=== PATIENT | male | born 1955 | race Caucasian/White ===

== ENCOUNTER 2021-11-14 17:50 | Outpatient (REF) | payer BC, SELFPAY ==
[2021-11-14 15:41] LABS: Hemoglobin A1C 5.7 % (<5.7)
[2021-11-14 15:50] LABS: ALT 30 U/L (16-63); AST 16 U/L (15-37); Albumin 3.7 g/dL (3.4-5.0); Alkaline Phosphatase 66 U/L (46-116); Anion Gap 9.2 mmol/L (3-11); BUN 16 mg/dL (7-18); Bilirubin, Total 0.7 mg/dL (0.2-1.0); CO2 27.8 mmol/L (21.0-32.0); Calcium 8.9 mg/dL (8.5-10.1); Calculated LDL 179 mg/dL (<100); Chloride 104 mmol/L (98-107); Cholesterol 248 mg/dL (<200); Estimated GFR 83.52 (mL/min/1.73m2); Glucose 114 mg/dL (74-106); HDL Cholesterol 50 mg/dL (40-60); Potassium 4.5 mmol/L (3.5-5.1); Sodium 141 mmol/L (136-145); Triglyceride 95 mg/dL (<150)
[2021-11-15 08:58] LABS: Hepatitis C Ab w Rflx HCV PCR Negative (Negative)
[2021-11-15 09:21] LABS: HIV-1/2 Ag & Ab Screen Negative (Negative)
== END 2021-11-14 17:51 | disposition home or self-care (01) ==
LOC: NCHCN 17:50
PROVIDERS: Visit Provider Nurse Practitioner Family
DX: E66.9 Obesity, unspecified (principal); E78.00 Pure hypercholesterolemia, unspecified; Z11.59 Encounter for screening for other viral diseases; Z11.4 Encounter for screening for human immunodeficiency virus [HIV]
CPT/HCPCS: 80053; 80061; 86803; 87389; 83036

== ENCOUNTER 2023-11-15 19:17 | Outpatient (REF) | payer BC, SELFPAY ==
[2023-11-15 16:40] LABS: HCT 40.6 % (40.0-50.0); HGB 13.9 g/dL (13.5-17.5); MCH 30.8 pg (27.0-33.0); MCHC 34.2 % (32.0-36.0); MCV 90 fL (80-95); MPV 12.9 fL (8.0-11.0); Platelet Count 209 10^3/uL (130-400); RBC 4.52 10^6/uL (4.36-5.78); RDW 12.6 % (11.8-14.1); RDW-SD 40.5 fL; WBC 6.17 10^3/uL (4.4-10.8)
[2023-11-15 17:20] LABS: ALT 16 U/L (16-63); AST 20 U/L (15-37); Albumin 3.8 g/dL (3.4-5.0); Alkaline Phosphatase 65 U/L (46-116); Anion Gap 9.2 mmol/L (3-11); BUN 22 mg/dL (7-18); Bilirubin, Total 1.51 mg/dL (0.2-1.0); CO2 28.8 mmol/L (21.0-32.0); Calcium 9.5 mg/dL (8.5-10.1); Calculated LDL 94 mg/dL (<100); Chloride 104 mmol/L (98-107); Cholesterol 157 mg/dL (<200); Estimated GFR 82.49 (mL/min/1.73m2); Glucose 94 mg/dL (74-106); HDL Cholesterol 46 mg/dL (40-60); Potassium 4.1 mmol/L (3.5-5.1); Sodium 142 mmol/L (136-145); Triglyceride 86 mg/dL (<150); Vitamin D 25 Total 69.1 ng/mL (30-100)
[2023-11-15 17:23] LABS: Hemoglobin A1C 5.4 % (<5.7)
== END 2023-11-15 19:18 | disposition home or self-care (01) ==
LOC: NCHCN 19:17
PROVIDERS: Visit Provider Nurse Practitioner Family
DX: I10 Essential (primary) hypertension (principal); E78.00 Pure hypercholesterolemia, unspecified; Z00.00 Encounter for general adult medical examination without abnormal findings
CPT/HCPCS: 80053; 80061; 82306; 85027; 83036

== ENCOUNTER 2023-12-11 13:32 | Outpatient (REF) | payer BC, SELFPAY ==
[2023-12-11 09:37] LABS: ESR 6 mm/hr (0-20)
[2023-12-11 09:45] LABS: C-Reactive Protein < 0.50 mg/dL (<or=0.5)
--- OUTSIDE RECORDS SUMMARY | 2023-12-11 13:34 | XMS_ITS | Clinical Summary ---
Author Organization [facility] Address [address] [place] [address] Care Team Providers Care Music Typographer Name Role Phone Unknown, Provider Primary Care Provider Encounters Date Type Department Care Team Description 12/11/2023 Lab Requisition [facility] Pathology & Laboratory Medicine - [facility] [address] [place] [address] Outr Resulting Lab, Provider from Last 3 Months Social History Tobacco Use Types Packs/Day Years Used Date Smoking Tobacco: Never Assessed Interpersonal Safety Answer Date Record ed Physically Hurt Never 09/29/2019 Verbally Threaten Not on file 09/29/2019 Sex and Gender Information Value Date Recorded Sex Assigned at Not on file Gender Identity Not on file Sexual Orientation Not on file Plan of Treatment Health Maintenance Due Date Last Done Comments RSV Immunization ( o r 60+ Years) (1 - 1-dose 60+ series) 2016 Fall Risk Screening 2021 COVID-19 Vaccine ( season) 2022 Hepatitis C Screen Completed 11/14/2021 Procedures Procedure Name Priority Date/Time Associated Diagnosis Comments HEPATITIS C AB W REFLEX TO HCV RNA BY PCR Routine 11/14/2021 8:00 EDT from Last 3 Months or Most Recently Relevant to Health Maintenance Results * HEPATITIS C AB W REFLEX TO HCV RNA BY PCR (11/14/2021 8:00 EDT) Hep C Antibody Negative Negative 11/15/2021 8:54 EDT [facility] Blood VENOUS BLOOD / Unknown 11/14/2021 8:00 EDT 11/14/2021 21:44 EDT Provider Outr Resulting Lab CHEMISTRY & BLOOD GAS ORDERABLES [facility] [address] [place] [address] from Last 3 Months or Most Recently Relevant to Health Maintenance Care Teams Music Typographer Relationship Specialty Start Date End Date Unknown, Provider, PCP - General 05/04/16
--- OUTSIDE RECORDS SUMMARY | 2023-12-11 13:34 | XMS_ITS | Encounter Summary ---
Author Organization [facility] Address [address] [place] [address] Care Team Providers Care Uppers Edge Burnisher Name Role Phone Unknown, Provider Primary Care Provider Encounter Details Date Type Department Care Team (Late st Contact Info) Description 11/14/2021 Lab Requisition [facility] Pathology & Laboratory Medicine - [facility] [address] [place] [address] Outr Resulting Lab, Provider Social History Tobacco Use Types Packs/Day Years Used Date Smoking Tobacco: Never Assessed Interpersonal Safety Answer Date Record ed Physically Hurt Never 09/29/2019 Verbally Threaten Not on file 09/29/2019 Sex and Gender Information Value Date Recorded Sex Assigned at Not on file Gender Identity Not on file Sexual Orientation Not on file documented as of this encounter Plan of Treatment Not on file documented as of this encounter Procedures Procedure Name Priority Date/Time Associated Diagnosis Comments HIV 1/2 ANTIGEN AND ANTIBODY, 4TH GENERATION Routine 11/14/2021 8:00 EDT documented in this encounter Results * HIV 1/2 ANTIGEN AND ANTIBODY, 4TH GENERATION (11/14/2021 8:00 EDT) HIV 1 and 2 Antibody/p24 Antigen, 4th Generation Negative Negative 11/15/2021 9:17 EDT [facility] Comment:If acute HIV-1 infec tion is suspected in a high risk patient, submit plasma specimen for HIV-1 RNA quantitation test. Blood VENOUS BLOOD / Unknown 11/14/2021 8:00 EDT 11/14/2021 21:44 EDT Narrative [facility] - 11/15/2021 9:17 EDT Fourth Generation assay performed on the Siemens Centaur XPT. Provider Outr Resulting Lab IMMUNOLOGY A ND SEROLOGY ORDERABLES [facility] [address] [place] [address] documented in this encounter Visit Diagnoses Not on filedocumented in this encounter Care Teams Uppers Edge Burnisher Relationship Specialty Start Date End Date Unknown, Provider, PCP - General 05/04/16 documented as of this encounter
--- OUTSIDE RECORDS SUMMARY | 2023-12-11 13:34 | XMS_ITS | Referral Summary ---
Author Organization [facility] Address [address] [place] [address] Care Team Providers Care Ore Crushing Dust Collector Name Role Phone Unknown, Provider Primary Care Provider Encounters Date Type Department Care Team Description 12/11/2023 Lab Requisition [facility] Pathology & Laboratory Medicine - [facility] [address] [place] [address] Outr Resulting Lab, Provider from Last 3 Months Social History Tobacco Use Types Packs/Day Years Used Date Smoking Tobacco: Never Assessed Interpersonal Safety Answer Date Record ed Physically Hurt Never 09/29/2019 Verbally Threaten Not on file 09/29/2019 Sex and Gender Information Value Date Recorded Sex Assigned at Not on file Gender Identity Not on file Sexual Orientation Not on file Plan of Treatment Not on file Procedures Procedure Name Priority Date/Time Associated Diagnosis Comments HEPATITIS C AB W REFLEX TO HCV RNA BY PCR Routine 11/14/2021 8:00 EDT from Last 3 Months or Most Recently Relevant to Health Maintenance Results * HEPATITIS C AB W REFLEX TO HCV RNA BY PCR (11/14/2021 8:00 EDT) Hep C Antibody Negative Negative 11/15/2021 8:54 EDT [facility] Blood VENOUS BLOOD / Unknown 11/14/2021 8:00 EDT 11/14/2021 21:44 EDT Provider Outr Resulting Lab CHEMISTRY & BLOOD GAS ORDERABLES [facility] [address] [place] [address] from Last 3 Months or Most Recently Relevant to Health Maintenance Care Teams Ore Crushing Dust Collector Relationship Specialty Start Date End Date Unknown, Provider, PCP - General 05/04/16
--- OUTSIDE RECORDS SUMMARY | 2023-12-11 13:34 | XMS_ITS | Encounter Summary ---
Author Organization [facility] Address [address] [place] [address] Care Team Providers Care State Game Warden Name Role Phone Unknown, Provider Primary Care Provider Encounter Details Date Type Department Care Team (Late st Contact Info) Description 11/14/2021 Lab Requisition [facility] Pathology & Laboratory Medicine - [address] [id number] Outr Resulting Lab, Provider Social History Tobacco [...] RNA BY PCR Routine 11/14/2021 8:00 EDT documented in this encounter Results * HEPATITIS C AB W REFLEX TO HCV RNA BY PCR (11/14/2021 8:00 EDT) Hep C Antibody Negative Negative 11/15/2021 8:54 EDT [facility] Blood VENOUS BLOOD / Unknown 11/14/2021 8:00 EDT 11/14/2021 21:44 EDT Provider Outr Resulting Lab CHEMISTRY & BLOOD GAS ORDERABLES [facility] [address] [place] [address] documented in this encounter Visit Diagnoses Not on filedocumented in this encounter Care Teams State Game Warden Relationship Specialty Start Date End Date Unknown, Provider, PCP - General 05/04/16 documented as of this encounter
--- OUTSIDE RECORDS SUMMARY | 2023-12-11 13:34 | XMS_ITS | Encounter Summary ---
Author Organization [facility] Address [address] [place] [address] Care Team Providers Care Tumor Registrar Name Role Phone Unknown, Provider Primary Care Provider [phone] Encounter Details Date Type Department Care Team (Late st Contact Info) Description 12/11/2023 Lab Requisition [facility] Pathology & Laboratory Medicine - [facility] [address] [place] [address] Outr Resulting Lab, Provider Social History Tobacco [...] as of this encounter Plan of Treatment Scheduled Orders Name Type Priority Associated Diagnoses Orde r Schedule CCP ANTIBODIES Lab Routine Ordered: 1 ANTI NUCLEAR AB (SAMANTHA), IFA Lab Routine Ordered: 12/11/2023 RHEUMATOID FACTOR Lab Routine Ordered : 12/11/2023 documented as of this encounter Visit Diagnoses Not on filedocumented in this encounter Care Teams Tumor Registrar Relationship Specialty Start Date End Date Unknown, Provider, PCP - General 05/04/16 documented as of this encounter
--- OUTSIDE RECORDS SUMMARY | 2023-12-11 13:35 | XMS_ITS | Encounter Summary ---
Author Organization [facility] Address [address] [place] [address] Care Team Providers Care Commodity Trader Name Role Phone Unknown, Provider Primary Care Provider Encounter Details Date Type Department Care Team (Late st Contact Info) Description 03/06/2017 Historical Results Only [facility] Radiology Results [address] [place] [address] John Velasquez, ZAY [address] [place] [address] Social History Tobacco Use Types Packs/Day Years Used Date Smoking Tobacco: Never Assessed Sex and Gender Information Value Date Recorded Sex Assigned at Not on file Gender Identity Not on file Sexual Orientation Not on file documented as of this encounter Plan of Treatment Not on file documented as of this encounter Procedures Procedure Name Priority Date/Time Associated Diagnosis Comments CT UPPER EXTREMITY WO CONTRAST 03/06/2017 18:55 EST XR WRIST LEFT 3 OR MORE VIEWS 03/06/2017 17:07 EST documented in this encounter Results * CT UPPER EXTREMITY WO CONTRAST (03/06/2017 18:55 EST) Anatomical Region Laterality Modality Upper Extremities Other 03/06/2017 18:5 5 EST Narrative 03/06/2017 18:58 EST ? EXAM: CAT SCAN/UPPER EXTREMITY W/O CONTRA EX. D/ (1750) ? CLINICAL INFORMATION: ? LEFT WRIST ? INDICATION: Left wrist injury. ? COMPARISON: Left wrist radiograph 03/06/2017 ? TECHNIQUE: Noncontrast CT scan of the left wrist was performed. Axial ? images and multiplanar reformations were reviewed. ? FINDINGS: There is a nondisplaced comminuted fracture of the distal ? radius with a dominant oblique fracture that extends into the ? articular surface of the distal radius at the radial lunate joint ? space. There is extension of this fracture into the dorsal aspect of ? the distal radioulnar joint. ? There are degenerative arthritic changes within the distal radioulnar ? joint. There are degenerative changes within the intercarpal joints ? and thumb carpal-metacarpal joints. No other fracture is seen. ? IMPRESSION: ? 1. Comminuted nondisplaced fracture the distal radius with extension ? into the radiocarpal and distal radioulnar joints. ? REPORT SIGNED IN OTHER VENDOR SYSTEM 03/06/2017 ?Reported By: Marquis Mac MD ? CC: ? Transcribed Date/Time: 03/06/2017 (4018) ? Net C Developer: ? Printed Date/Time: 08/14/2018 (0931) ? PAGE 1 ? Signed Report ? Procedure Note Marquis Mac MD - 01/01/2019 EXAM: CAT SCAN/UPPER EXTREMITY W/O CONTRA EX. D/ (1750) CLINICAL INFORMATION: LEFT WRIST INDICATION: Left wrist injury. COMPARISON: Left wrist radiograph 03/06/2017 TECHNIQUE: Noncontrast CT scan of the left wrist was performed.Axial images and multiplanar reformations were reviewed. FINDINGS: There is a nondisplaced comminuted fracture of the distal radius with a dominant oblique fracture that extends into the articular surface of the distal radius at the radial lunate joint space. There is extension of this fracture into the dorsal aspectof the distal radioulnar joint. There are degenerative arthritic changes within the distalradioulnar joint. There are degenerative changes within the intercarpal joints and thumb carpal-metacarpal joints. No other fracture is seen. IMPRESSION: 1. Comminuted nondisplaced fracture the distal radius withextension into the radiocarpal and distal radioulnar joints. REPORT SIGNED IN OTHER VENDOR SYSTEM 03/06/2017 Reported By: Marquis Mac MD CC: Transcribed Date/Time: 03/06/2017 (1858) Net C Developer: Printed Date/Time: 08/14/2018 (3295) PAGE 1 Signed Report John Velasquez PA-C [facility] ORDERABLES * XR WRIST LEFT 3 OR MORE VIEWS (03/06/2017 17:07 EST) Anatomical Region Laterality Modality Upper Extremities Left Other 03/06/2017 17:0 7 EST Narrative 03/06/2017 17:10 EST ? EXAM: RADIOLOGY/WRIST LEFT 3 + VIEWS ?EX. D/ (1704) ? CLINICAL INFORMATION: ? PAIN / SWELLING AFTER FOOSH ? INDICATION: PAIN / SWELLING AFTER FOOSH LEFT WRIST INJURY ? TECHNIQUE: 4 views left wrist. ? COMPARISON: None. ? FINDINGS: ? There is a nondisplaced intra-articular fracture of the distal ? radius. No additional fracture is detected. ? There is slight ulna minus variance and there is degenerative change ? of distal radioulnar joint. Early degenerative change of the STT ? reticulations is also noted. ? IMPRESSION: ? Nondisplaced distal radial fracture ? REPORT SIGNED IN OTHER VENDOR SYSTEM 03/06/2017 ?Reported By: Christ Reyes MD ? CC: ? Transcribed Date/Time: 03/06/2017 (1710) ? Net C Developer: ? Printed Date/Time: 08/14/2018 (98) ? PAGE 1 ? Signed Report ? Procedure Note Christ Reyes E - 01/01/2019 EXAM: RADIOLOGY/WRIST LEFT 3 + VIEWS EX. D/ (1704) CLINICAL INFORMATION: PAIN / SWELLING AFTER FOOSH INDICATION: PAIN / SWELLING AFTER FOOSH LEFT WRIST INJURY TECHNIQUE: 4 views left wrist. COMPARISON: None. FINDINGS: There is a nondisplaced intra-articular fracture of the distal radius. No additional fracture is detected. There is slight ulna minus variance and there is degenerativechange of distal radioulnar joint. Early degenerative change of the STT reticulations is also noted. IMPRESSION: Nondisplaced distal radial fracture REPORT SIGNED IN OTHER VENDOR SYSTEM 03/06/2017 Reported By: Christ Reyes MD CC: Transcribed Date/Time: 03/06/2017 (1710) Net C Developer: Printed Date/Time: 08/14/2018 (1481) PAGE 1 Signed Report John Velasquez PA-C [facility] DI[facility]NO[facility]G ORDERABLES documented in this encounter Visit Diagnoses Not on filedocumented in this encounter Care Teams Commodity Trader Relationship Specialty Start Date End Date Unknown, Provider, PCP - General 05/04/16 documented as of this encounter
--- OUTSIDE RECORDS SUMMARY | 2023-12-11 13:35 | XMS_ITS | Encounter Summary ---
Author Organization [facility] Address [address] [place] [address] Care Team Providers Care Distillery Worker Name Role Phone Unknown, Provider Primary Care Provider [phone] Encounter Details Date Type Department Care Team (Latest Contact Info) Description 09/03/2017 19:53 EDT - 09/03/2017 23:[address] [facility] [address] [place] [address] Unknown, Provider, Discharge Disposition: Home or Self Care Social History Tobacco Use Types Packs/Day Years Used Date Smoking Tobacco: Never Assessed Sex and Gender Information Value Date Recorded Sex Assigned at Not on file Gender Identity Not on file Sexual Orientation Not on file documented as of this encounter Discharge Disposition Disposition Code Departure Means Destination Home or Self Residential documented in this encounter Plan of Treatment Not on file documented as of this encounter Visit Diagnoses Not on filedocumented in this encounter Care Teams Distillery Worker Relationship Specialty Start Date End Date Unknown, Provider, PCP - General 05/04/16 documented as of this encounter
--- OUTSIDE RECORDS SUMMARY | 2023-12-11 13:35 | XMS_ITS | Encounter Summary ---
Author Organization [facility] Address [address] [place] [address] Care Team Providers Care Form Setter/Driver Name Role Phone Unknown, Provider Primary Care Provider [phone] Encounter Details Date Type Department Care Team (Late st Contact Info) Description 09/03/2017 Historical Results Only [facility] Radiology Results [address] [place] [address] Rasheeda Jeffery PA-C [address] [place] [phone] Social History Tobacco Use Types Packs/Day Years Used Date Smoking Tobacco: Never Assessed Sex and Gender Information Value Date Recorded Sex Assigned at Not on file Gender Identity Not on file Sexual Orientation Not on file documented as of this encounter Plan of Treatment Not on file documented as of this encounter Procedures Procedure Name Priority Date/Time Associated Diagnosis Comments XR WRIST LEFT 3 OR MORE VIEWS 09/03/2017 9:35 EDT documented in this encounter Results * XR WRIST LEFT 3 OR MORE VIEWS (09/03/2017 9:35 EDT) Anatomical Region Laterality Modality Upper Extremities Left Other 09/03/2017 9:35 EDT Narrative 09/03/2017 9:38 EDT ? EXAM: RADIOLOGY/WRIST LEFT 3 + VIEWS ?EX. D/ (0931) ? CLINICAL INFORMATION: ? LEFT WRIST FRACTURE S62.102A ? WRIST LEFT 3 + VIEWS ? Signs and Symptoms/Comments: FOLLOW UP DISTAL RADIUS FRACTURE LEFT ? WRIST LEFT WRIST FRACTURE S62.102A ? Comparison: 03/06/2017, 03/15/2017, 05/31/2017 ? Findings: ? 3 views of the left wrist were obtained. ? There is a transverse intra-articular fracture of the distal left ? radius. The fracture is healing. There has been no change in position ? or alignment of the fracture deformity when compared to the prior ? examination. No other interval change is seen. There is negative ? 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 ? Impression: ? 1. ??Progressive healing of the fracture of the distal radius. ? REPORT SIGNED IN OTHER VENDOR SYSTEM 09/03/2017 ?Reported By: Tulio Golden MD ? CC: ? Transcribed Date/Time: 09/03/2017 (0938) ? Weigh Box Tender: ? Printed Date/Time: 08/16/2018 (1028) ? PAGE 1 ? Signed Report ? Procedure Note Tulio Golden MD - 01/02/2019 EXAM: RADIOLOGY/WRIST LEFT 3 + VIEWS EX. D/ (0931) CLINICAL INFORMATION: LEFT WRIST FRACTURE S62.102A WRIST LEFT 3 + VIEWS Signs and Symptoms/Comments: FOLLOW UP DISTAL RADIUS FRACTURE LEFT WRIST LEFT WRIST FRACTURE S62.102A Comparison: 03/06/2017, 03/15/2017, 05/31/2017 Findings: 3 views of the left wrist were obtained. There is a transverse intra-articular fracture of the distal left radius. The fracture is healing. There has been no change inposition or alignment of the fracture deformity when compared to the prior examination. No other interval change is seen. 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 Impression: 1. Progressive healing of the fracture of the distal radius. REPORT SIGNED IN OTHER VENDOR SYSTEM 09/03/2017 Reported By: Tulio Golden MD CC: Transcribed Date/Time: 09/03/2017 (0938) Weigh Box Tender: Printed Date/Time: 08/16/2018 (1024) PAGE 1 Signed Report Rasheeda Jeffery PA-C [facility] DIAGNOSTIC IMAGING ORDERABLES documented in this encounter Visit Diagnoses Not on filedocumented in this encounter Care Teams Form Setter/Driver Relationship Specialty Start Date End Date Unknown, Provider, PCP - General 05/04/16 documented as of this encounter
--- OUTSIDE RECORDS SUMMARY | 2023-12-11 13:35 | XMS_ITS | Encounter Summary ---
Author Organization [facility] Address [address] [place] [address] Care Team Providers Care Opal Polisher Name Role Phone Unknown, Provider Primary Care Provider Encounter Details Date Type Department Care Team (Late st Contact Info) Description 04/19/2017 Historical Results Only [facility] Radiology Results [address] [place] [address] Rasheeda Jeffery PA-C [address] [place] [phone] Social History Tobacco Use Types Packs/Day [...] XR WRIST LEFT 3 OR MORE VIEWS 04/19/2017 8:14 EST documented in this encounter Results * XR WRIST LEFT 3 OR MORE VIEWS (04/19/2017 8:14 EST) Anatomical Region Laterality Modality Upper Extremities Left Other 04/19/2017 8:14 EST Narrative 04/19/2017 8:17 EST ? EXAM: RADIOLOGY/WRIST LEFT 3 + VIEWS ?EX. D/ (0810) ? CLINICAL INFORMATION: ? S52.502D - Closed fracture of distal end of the left radius with ? routine healing, unspecified fracture morphology, initial encounter ? WRIST LEFT 3 + VIEWS ? Signs and Symptoms/Comments: ??S52.502D - Closed fracture of distal ? end of the left radius with routine healing, unspecified fracture ? morphology, initial encounter ? Comparison: 03/29/2017, 03/06/2017 ? FINDINGS: ? Left wrist: 3 views were performed. A healing oblique intra-articular ? fracture of the distal radius is present. The alignment remains ? near-anatomic. Mild-moderate degenerative changes are scattered ? throughout the wrist. Significant ulnar negative variance is present ? with moderate degenerative changes at the distal radioulnar joint. ? The soft tissues remain swollen. ? IMPRESSION: ? 1. ??Healing intra-articular fracture of the distal radius. Alignment ? near-anatomic. ? 2. ??Ulnar negative variance with moderate degenerative changes at the ? distal radioulnar joint. ? REPORT SIGNED IN OTHER VENDOR SYSTEM 04/19/2017 ?Reported By: Franc Maxwell MD ? CC: ? Transcribed Date/Time: 04/19/2017 (0817) ? Tray Room Worker: ? Printed Date/Time: 08/15/2018 (1050) ? PAGE 1 ? Signed Report ? Procedure Note Franc Maxwell MD - 01/01/2019 EXAM: RADIOLOGY/WRIST LEFT 3 + VIEWS EX. D/ (0810) CLINICAL INFORMATION: S52.502D - Closed fracture of distal end of the left radius with routine healing, unspecified fracture morphology, initial encounter WRIST LEFT 3 + VIEWS Signs and Symptoms/Comments: S52.502D - Closed fracture of distal end of the left radius with routine healing, unspecified fracture morphology, initial encounter Comparison: 03/29/2017, 03/06/2017 FINDINGS: Left wrist: 3 views were performed. A healing obliqueintra-articular fracture of the distal radius is present. The alignment remains near-anatomic. Mild-moderate degenerative changes are scattered throughout the wrist. Significant ulnar negative variance ispresent with moderate degenerative changes at the distal radioulnar joint. The soft tissues remain swollen. IMPRESSION: 1. Healing intra-articular fracture of the distal radius.Alignment near-anatomic. 2. Ulnar negative variance with moderate degenerative changes atthe distal radioulnar joint. REPORT SIGNED IN OTHER VENDOR SYSTEM 04/19/2017 Reported By: Franc Maxwell MD CC: Transcribed Date/Time: 04/19/2017 (0817) Tray Room Worker: Printed Date/Time: 08/15/2018 (1050) PAGE 1 Signed Report Rasheeda Jeffery PA-C IMG DIAGNOSTIC IMAGING ORDERABLES documented in this encounter Visit Diagnoses Not on filedocumented in this encounter Care Teams Opal Polisher Relationship Specialty Start Date End Date Unknown, Provider, PCP - General 05/04/16 documented as of this encounter
--- OUTSIDE RECORDS SUMMARY | 2023-12-11 13:35 | XMS_ITS | Encounter Summary ---
Author Organization [facility] Address [address] [place] [address] Care Team Providers Care Dredge Lever Operator Name Role Phone Unknown, Provider Primary Care Provider [phone] Encounter Details Date Type Department Care Team (Late st Contact Info) Description 03/22/2017 Historical Results Only [facility] Radiology Results [address] [place] [address] Rasheeda Jeffery PA-C [address] [place] [phone] Social History Tobacco Use Types Packs/Day [...] XR WRIST LEFT 3 OR MORE VIEWS 03/22/2017 9:18 EST documented in this encounter Results * XR WRIST LEFT 3 OR MORE VIEWS (03/22/2017 9:18 EST) Anatomical Region Laterality Modality Upper Extremities Left Other 03/22/2017 9:18 EST Narrative 03/22/2017 9:21 EST ? EXAM: RADIOLOGY/WRIST LEFT 3 + VIEWS ?EX. D/ (0840) ? CLINICAL INFORMATION: ? S52.502A VCLOSED FRACTURE OF DISTAL END OF LEFT RADIUS ? INDICATION: S52.502A VCLOSED FRACTURE OF DISTAL END OF LEFT RADIUS ? FOLLOW UP LEFT ARM ??WITH X RAYS ? TECHNIQUE: 4 views left wrist. ? COMPARISON: 03/15/2017. ? FINDINGS: Overlying cast material obscures bony detail. The oblique ? distal radial head fracture is unchanged in alignment. No additional ? fractures are visible. The carpal bones appear intact. There is an ? ulnar minus alignment at the wrist. ? IMPRESSION: ? 1. Healing distal radial fracture. ? REPORT SIGNED IN OTHER VENDOR SYSTEM 03/22/2017 ?Reported By: Stevenson Owen MD ? CC: ? Transcribed Date/Time: 03/22/2017 (0921) ? River Guide: ? Printed Date/Time: 08/14/2018 (0931) ? PAGE 1 ? Signed Report ? Procedure Note Stevenson Owen MD - 01/01/2019 EXAM: RADIOLOGY/WRIST LEFT 3 + VIEWS EX. D/ (0840) CLINICAL INFORMATION: S52.502A VCLOSED FRACTURE OF DISTAL END OF LEFT RADIUS INDICATION: S52.502A VCLOSED FRACTURE OF DISTAL END OF LEFT RADIUS FOLLOW UP LEFT ARM WITH X RAYS TECHNIQUE: 4 views left wrist. COMPARISON: 03/15/2017. FINDINGS: Overlying cast material obscures bony detail. The oblique distal radial head fracture is unchanged in alignment. Noadditional fractures are visible. The carpal bones appear intact. There is an ulnar minus alignment at the wrist. IMPRESSION: 1. Healing distal radial fracture. REPORT SIGNED IN OTHER VENDOR SYSTEM 03/22/2017 Reported By: Stevenson Owen MD CC: Transcribed Date/Time: 03/22/2017 (09) River Guide: Printed Date/Time: 08/14/2018 (0883) PAGE 1 Signed Report Rasheeda Jeffery PA-C [facility] ORDERABLES documented in this encounter Visit Diagnoses Not on filedocumented in this encounter Care Teams Dredge Lever Operator Relationship Specialty Start Date End Date Unknown, Provider, PCP - General 05/04/16 documented as of this encounter
--- OUTSIDE RECORDS SUMMARY | 2023-12-11 13:35 | XMS_ITS | Encounter Summary ---
Author Organization [facility] Address [address] [place] [address] Care Team Providers Care Mainspring Reverse Winder Name Role Phone Unknown, Provider Primary Care Provider [phone] Encounter Details Date Type Department Care Team (Late st Contact Info) Description 05/31/2017 Historical Results Only [facility] Radiology Results [address] [place] [address] Rasheeda Jeffery PA-C [address] [place] [phone] Social History Tobacco Use Types Packs/Day [...] XR WRIST LEFT 3 OR MORE VIEWS 05/31/2017 8:14 EDT documented in this encounter Results * XR WRIST LEFT 3 OR MORE VIEWS (05/31/2017 8:14 EDT) Anatomical Region Laterality Modality Upper Extremities Left Other 05/31/2017 8:14 EDT Narrative 05/31/2017 8:17 EDT ? EXAM: RADIOLOGY/WRIST LEFT 3 + VIEWS ?EX. D/ (0811) ? CLINICAL INFORMATION: ? CLOSED FRACTURE OF DISTAL END OF LEFT RADIUS WITH ROUTINE HEALING ? S52.502D ? WRIST LEFT 3 + VIEWS ? Signs and Symptoms/Comments: L DISTAL RADIUS FX; XRAYS PRIOR CLOSED ? FRACTURE OF DISTAL END OF LEFT RADIUS WITH ROUTINE HEALING, S52.502D ? Comparison: 03/06/2017, 04/19/2017 ? Findings: ? 3 views of the left wrist were obtained. ? There is a transverse fracture of the distal radius. The fracture is ? healing. There has been no change in position or alignment of the ? fracture deformity when compared to the prior examination. No other ? interval change is seen. ? Ulnar negative variance is present. ? Impression: ? 1. Healing fracture of the distal radius. ? 2. Negative ulnar variance. ? REPORT SIGNED IN OTHER VENDOR SYSTEM 05/31/2017 ?Reported By: Tulio Golden MD ? CC: ? Transcribed Date/Time: 05/31/2017 (0817) ? Roll Form Operator: ? Printed Date/Time: 08/15/2018 (1050) ? PAGE 1 ? Signed Report ? Procedure Note Tulio Golden MD - 01/01/2019 EXAM: RADIOLOGY/WRIST LEFT 3 + VIEWS EX. D/ (0811) CLINICAL INFORMATION: CLOSED FRACTURE OF DISTAL END OF LEFT RADIUS WITH ROUTINE HEALING S52.502D WRIST LEFT 3 + VIEWS Signs and Symptoms/Comments: L DISTAL RADIUS FX; XRAYS PRIOR CLOSED FRACTURE OF DISTAL END OF LEFT RADIUS WITH ROUTINE HEALING, S52.502D Comparison: 03/06/2017, 04/19/2017 Findings: 3 views of the left wrist were obtained. There is a transverse fracture of the distal radius. The fractureis healing. There has been no change in position or alignment of the fracture deformity when compared to the prior examination. No other interval change is seen. Ulnar negative variance is present. Impression: 1. Healing fracture of the distal radius. 2. Negative ulnar variance. REPORT SIGNED IN OTHER VENDOR SYSTEM 05/31/2017 Reported By: Tulio Golden MD CC: Transcribed Date/Time: 05/31/2017 (0817) Roll Form Operator: Printed Date/Time: 08/15/2018 (1050) PAGE 1 Signed Report Rasheeda Jeffery PA-C [facility] ORDERABLES documented in this encounter Visit Diagnoses Not on filedocumented in this encounter Care Teams Mainspring Reverse Winder Relationship Specialty Start Date End Date Unknown, Provider, PCP - General 05/04/16 documented as of this encounter
--- OUTSIDE RECORDS SUMMARY | 2023-12-11 13:35 | XMS_ITS | Encounter Summary ---
Author Organization [facility] Address [address] [place] [address] Care Team Providers Care Tug Hand Name Role Phone Unknown, Provider Primary Care Provider [phone] Encounter Details Date Type Department Care Team (Latest Contact Info) Description 03/06/2017 9:13 EST - 03/06/2017 23:59 EST Hospital Encounter [facility] [address] [place] [address] Unknown, Provider, Discharge Disposition: Home or Self Care Social History Tobacco Use Types Packs/Day Years Used Date Smoking Tobacco: Never Assessed Sex and Gender Information Value Date Recorded Sex Assigned at Not on file Gender Identity Not on file Sexual Orientation Not on file documented as of this encounter Discharge Disposition Disposition Code Departure Means Destination Home or Self Retirement documented in this encounter Plan of Treatment Not on file documented as of this encounter Visit Diagnoses Not on filedocumented in this encounter Care Teams Tug Hand Relationship Specialty Start Date End Date Unknown, Provider, PCP - General 05/04/16 documented as of this encounter
--- OUTSIDE RECORDS SUMMARY | 2023-12-11 13:35 | XMS_ITS | Encounter Summary ---
Author Organization [facility] Address [address] [place] [address] Care Team Providers Care Team Assistant Name Role Phone Unknown, Provider Primary Care Provider Encounter Details Date Type Department Care Team (Late st Contact Info) Description 03/29/2017 Historical Results Only [facility] Radiology Results [address] [place] [address] Rasheeda Jeffery PA-C [address] [place] [phone] Social History Tobacco Use Types Packs/Day [...] XR WRIST LEFT 3 OR MORE VIEWS 03/29/2017 8:18 EST documented in this encounter Results * XR WRIST LEFT 3 OR MORE VIEWS (03/29/2017 8:18 EST) Anatomical Region Laterality Modality Upper Extremities Left Other 03/29/2017 8:18 EST Narrative 03/29/2017 8:22 EST ? EXAM: RADIOLOGY/WRIST LEFT 3 + VIEWS ?EX. D/ (0814) ? CLINICAL INFORMATION: ? S52.502D CLOSED FRACTURE OF DISTAL END OF LEFT RADIUS ? WRIST LEFT 3 + VIEWS ? Signs and Symptoms/Comments: ??S52.502D CLOSED FRACTURE OF DISTAL END ? OF LEFT RADIUS ? Comparison: 03/22/2017, 03/06/2017 ? FINDINGS: ? Left wrist: 3 views were performed. A healing intra-articular ? fracture of the distal radius is again identified. The alignment ? appears to remain in near-anatomic, although casting material ? obscures the fine osseous detail. Mild-moderate degenerative changes ? are scattered throughout the wrist. Significant ulnar negative ? variance is present with moderate degenerative changes at the distal ? radioulnar joint. The soft tissues remain swollen. ? IMPRESSION: ? 1. ??Healing intra-articular fracture of the distal radius. Alignment ? near-anatomic. ? 2. ??Significant ulnar negative variance with moderate degenerative ? changes at the distal radioulnar joint. ? REPORT SIGNED IN OTHER VENDOR SYSTEM 03/29/2017 ?Reported By: Franc Maxwell MD ? CC: ? Transcribed Date/Time: 03/29/2017 (0822) ? Certification Engineer: ? Printed Date/Time: 08/15/2018 (1050) ? PAGE 1 ? Signed Report ? Procedure Note Franc Maxwell MD - 01/01/2019 EXAM: RADIOLOGY/WRIST LEFT 3 + VIEWS EX. D/ (0814) CLINICAL INFORMATION: S52.502D CLOSED FRACTURE OF DISTAL END OF LEFT RADIUS WRIST LEFT 3 + VIEWS Signs and Symptoms/Comments: S52.502D CLOSED FRACTURE OF DISTALEND OF LEFT RADIUS Comparison: 03/22/2017, 03/06/2017 FINDINGS: Left wrist: 3 views were performed. A healing intra-articular fracture of the distal radius is again identified. The alignment appears to remain in near-anatomic, although casting material obscures the fine osseous detail. Mild-moderate degenerativechanges are scattered throughout the wrist. Significant ulnar negative variance is present with moderate degenerative changes at thedistal radioulnar joint. The soft tissues remain swollen. IMPRESSION: 1. Healing intra-articular fracture of the distal radius.Alignment near-anatomic. 2. Significant ulnar negative variance with moderate degenerative changes at the distal radioulnar joint. REPORT SIGNED IN OTHER VENDOR SYSTEM 03/29/2017 Reported By: Franc Maxwell MD CC: Transcribed Date/Time: 03/29/2017 (0822) Certification Engineer: Printed Date/Time: 08/15/2018 (2667) PAGE 1 Signed Report Rasheeda Jeffery PA-C [facility] DI[facility]NOSTIC IMAGING ORDERABLES documented in this encounter Visit Diagnoses Not on filedocumented in this encounter Care Teams Team Assistant Relationship Specialty Start Date End Date Unknown, Provider, PCP - General 05/04/16 documented as of this encounter
--- OUTSIDE RECORDS SUMMARY | 2023-12-11 13:35 | XMS_ITS | Encounter Summary ---
Author Organization [facility] Address [address] [place] [address] Care Team Providers Care Lead Software Qa Engineer Name Role Phone Unknown, Provider Primary Care Provider [phone] Encounter Details Date Type Department Care Team (Late st Contact Info) Description 03/15/2017 Historical Results Only [facility] Radiology Results [address] [place] [address] Rasheeda Jeffery PA-C [address] [place] [phone] Social History Tobacco Use Types Packs/Day Years Used Date Smoking Tobacco: Never Assessed Sex and Gender Information Value Date Recorded Sex Assigned at Not on file Gender Identity Not on file Sexual Orientation Not on file documented as of this encounter Plan of Treatment Not on file documented as of this encounter Visit Diagnoses Not on filedocumented in this encounter Care Teams Lead Software Qa Engineer Relationship Specialty Start Date End Date Unknown, Provider, PCP - General 05/04/16 documented as of this encounter
--- OUTSIDE RECORDS SUMMARY | 2023-12-11 13:35 | XMS_ITS | Encounter Summary ---
Author Organization [facility] Address [address] [place] [address] Care Team Providers Care Bonding Machine Tender Name Role Phone Unknown, Provider Primary Care Provider Encounter Details Date Type Department Care Team (Late st Contact Info) Description 03/16/2017 Historical Results Only [facility] Radiology Results [address] [place] [address] Rasheeda Jeffery PA-C [address] [place] [phone] Social History Tobacco Use Types Packs/Day [...] XR WRIST LEFT 3 OR MORE VIEWS 03/16/2017 9:15 EST documented in this encounter Results * XR WRIST LEFT 3 OR MORE VIEWS (03/16/2017 9:15 EST) Anatomical Region Laterality Modality Upper Extremities Left Other 03/16/2017 9:15 EST Narrative 03/16/2017 9:15 EST ? EXAM: RADIOLOGY/WRIST LEFT 3 + VIEWS ?EX. D/ (0849) ? CLINICAL INFORMATION: ? LEFT WRIST FRACTURE S62.102A ? INDICATION: Left wrist fracture S62.102A. ? COMPARISON: LEFT WRIST RADIOGRAPH -12/04/2017. ? TECHNIQUE: Three views of the left wrist were obtained. ? FINDINGS: ? BONES/JOINTS: Healing nondisplaced fracture of the distal radius with ? extension into the distal radius articular surface. 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 Degenerative ? changes within the triscaphe and basal joints. ? SOFT TISSUES: Mild swelling of the wrist soft tissues. No foreign ? body. ? IMPRESSION: ??Healing fracture of the distal radius ? REPORT SIGNED IN OTHER VENDOR SYSTEM 03/16/2017 ?Reported By: Marquis Mac MD ? CC: ? Transcribed Date/Time: 03/16/2017 (0915) ? Supervisor Hand Workers: ? Printed Date/Time: 08/14/2018 (0931) ? PAGE 1 ? Signed Report ? Procedure Note Marquis Mac MD - 01/01/2019 EXAM: RADIOLOGY/WRIST LEFT 3 + VIEWS EX. D/ (0849) CLINICAL INFORMATION: LEFT WRIST FRACTURE S62.102A INDICATION: Left wrist fracture S62.102A. COMPARISON: LEFT WRIST RADIOGRAPH -12/04/2017. TECHNIQUE: Three views of the left wrist were obtained. FINDINGS: BONES/JOINTS: Healing nondisplaced fracture of the distal radiuswith extension into the distal radius articular surface. Milddegenerative arthrosis of the distal radioulnar joint, unchanged. Degenerative changes within the triscaphe and basal joints. SOFT TISSUES: Mild swelling of the wrist soft tissues. No foreign body. IMPRESSION: Healing fracture of the distal radius REPORT SIGNED IN OTHER VENDOR SYSTEM 03/16/2017 Reported By: Marquis Mac MD CC: Transcribed Date/Time: 03/16/2017 (0915) Supervisor Hand Workers: Printed Date/Time: 08/14/2018 (4389) PAGE 1 Signed Report Rasheeda Jeffery PA-C [facility] DIAGNOSTIC IMAGING ORDERABLES documented in this encounter Visit Diagnoses Not on filedocumented in this encounter Care Teams Bonding Machine Tender Relationship Specialty Start Date End Date Unknown, Provider, PCP - General 05/04/16 documented as of this encounter
[2023-12-11 17:36] LABS: Rheumatoid Factor 14.3 IU/mL (<12.0)
[2023-12-12 09:31] LABS: Cyclic Citrullinated Peptide <2.5 U/mL (<5.0)
[2023-12-12 16:03] LABS: ANA Interpretation Positive (Negative); ANA Titer Pattern 1:160 Speckled
[2023-12-13 16:54] LABS: Myeloperoxidase Ab IgG <0.2 U (>=0.4); Proteinase 3 Ab (PR3) <0.2 U
[2023-12-14 17:30] LABS: Arachidic Acid, C20.0 40 nmol/mL (50-90); C22:0 58.2 nmol/mL (<=96.3); C24:0 49.9 nmol/mL (<=91.4); C24:0/C22:0 0.86 ratio (<=1.39); C26:0 0.49 nmol/mL (<=1.30); C26:0/C22:0 0.008 ratio (<=0.023); DHA, C22:6w3 109 nmol/mL (30-250); DPA, C22:5w3 58 nmol/mL (20-210); DPA, C22:5w6 9 nmol/mL (10-70); DTA, C22:4w6 19 nmol/mL (10-80); Docosenoic Acid, C22:1 4 nmol/mL (4-13); EPA, C20:5w3 64 nmol/mL (14-100); Hexadecenoic Acid, C16:1w9 61 nmol/mL (25-105); Lauric Acid, C12:0 16 nmol/mL (6-90); Linoleic Acid, C18:2w6 3165 nmol/mL (2270-3850); Mead Acid, C20:3w9 32 nmol/mL (7-30); Myristic Acid, C14:0 93 nmol/mL (30-450); Nervonic Acid, C24:1w9 87 nmol/mL (60-100); Oleic Acid, C18:1w9 1931 nmol/mL (650-3500); Palmitic Acid, C16:0 2202 nmol/mL (1480-3730); Palmitoleic Acid, C16:1w7 241 nmol/mL (110-1130); Pristanic/Phytanic 0.05 ratio (<=0.39); Stearic Acid, C18:0 669 nmol/mL (590-1170); Total Polyunsaturated Acid 4.5 mmol/L (3.2-5.8); Vaccenic Acid, C18:1w7 205 nmol/mL (280-740); a-Linolenic Acid, C18:3w3 84 nmol/mL (50-130); g-Linolenic Acid, C18:3w6 64 nmol/mL (16-150); h-g-Linolenic, C20:3w6 200 nmol/mL (50-250)
[2024-03-10 12:30] LABS: Arachidonic Acid, C20:4w6 1252 nmol/mL (520-1490)
== END 2023-12-11 13:33 | disposition home or self-care (01) ==
LOC: LBN 13:32
PROVIDERS: PCP Physician Assistant Surgical; Visit Provider Physician Assistant Surgical
DX: J84.9 Interstitial pulmonary disease, unspecified (principal)
CPT/HCPCS: 82725; 85652; 86200; 82726; 83516; 86038; 86140; 86431

== ENCOUNTER 2023-12-31 03:24 | Outpatient (CLI) | payer BC, SELFPAY ==
[2023-12-31] MEDS: Inhaler, Assist Device 1 EACH MC (14:47)
[2023-12-31] MEDS: Levalbuterol HFA 15 GM INH 4 PUFF IH (14:47)
--- NOTE | 2024-01-01 14:36 | W.PFT ---
Date of service: 12/31/23 Time of Service: 12:54 Pulmonary Function Test Result Indications: ILD Interpretation Spirometry: No airflow limitation. No bronchodilator response. Lung Volumes: Normal lung volumes Diffusion Capacity: Normal diffusion Airway Pressure: Normal airways resistance Impression Normal pulmonary function testing Clinical Correlation therefore is recommended.
== END 2023-12-31 03:25 | disposition home or self-care (01) ==
PROVIDERS: PCP Physician Assistant Surgical; Visit Provider Physician Assistant Surgical
DX: J84.9 Interstitial pulmonary disease, unspecified (principal)
CPT/HCPCS: 94060; 94726; 94729